=== PATIENT | male | born 1985 | race Hispanic/Latino ===

== ENCOUNTER 2019-01-25 06:46 | Day surgery (SDC) | payer OTHER ==
--- NOTE | 2019-01-24 16:45 | NUR ---
DOS, H&P CLARIFIED DOS WITH MARCIO AT DR. SHELTON'S OFFICE. PER MARCIO, DOS IS 01/25/19, H&P WILL BE DICTATED.
[2019-01-24 16:46] LABS: BASOPHILS % (AUTO) 0.4 % (0.0-5.0); EOSINOPHILS % (AUTO) 11.5 % (0.0-8.0); HEMATOCRIT 41.5 % (42-54); LYMPHOCYTES % (AUTO) 27.3 % (21.0-51.0); MEAN CORPUSCULAR HGB CONC 34.7 g/dL (32.0-36.0); MEAN CORPUSCULAR VOLUME 86.5 fL (79-99); MONOCYTES % (AUTO) 5.9 % (3.0-13.0); NEUTROPHILS % (AUTO) 54.9 % (40.0-77.0); PLATELET COUNT (AUTO) 218 K/uL (130-400); RED CELL DISTRIBUTION WIDTH 13.1 % (11.0-15.5); WHITE BLOOD COUNT (AUTO) 10.5 K/uL (4.8-10.8)
[2019-01-24 16:48] VITALS: BP 142/81
--- NOTE | 2019-01-24 17:30 | NUR ---
HX ABNORMAL HEART BEAT PT STATED HE HAD HX OF ABNORMAL HEARTBEAT DIAGNOSED BY HIS PCP 5 YRS AGO AND WAS PUT ON MONITOR OVERNIGHT, STATES HEARTBEAT FAST AT NIGHT AND SLOW AT DAY TIME. HE HAS NEVER BEEN SEEN BY DISK SHARPENER, NOT PUT ON ANY MEDS, NO OTHER WORK UP DONE DUE TO INSURANCE. PT HAS NOT HAD ANY FOLLOW UP AFTER THAT. PT IS ASYMPTOMATIC. DR. WALTER NOTIFIED.
[~2019-01-25] VITALS: Ht 165.1 cm; Wt 110.4 kg
[2019-01-25] VITALS (20 sets, daily range): BP systolic 107–130; BP diastolic 54–85
--- NOTE | 2019-01-25 08:00 | NUR ---
POTENTIAL FOR INFECTION: SHAVED ENTIRE ABDOMEN PER [employer]ER FORRESTER.
[2019-01-25] MEDS ORDERED: BUPIVACAINE/PF 0.25% 30ML VIAL IJ ONE (08:19)
[2019-01-25] MEDS ORDERED: LACTATED RINGERS 1000ML 1,000 ML IV ONE (08:22)
[2019-01-25] MEDS ORDERED: NAPR-1023 PO (08:50)
[2019-01-25] MEDS ORDERED: DEXAMETHASONE SOD PHOSPHATE 10MG/ML 1ML VIAL ONE (09:04)
[2019-01-25] MEDS ORDERED: PROPOFOL 10 MG/ML 20ML VIAL IV ONE (09:04)
[2019-01-25] MEDS ORDERED: MIDAZOLAM HCL 1 MG/ML 2ML VIAL ONE (09:04)
[2019-01-25] MEDS ORDERED: SUCCINYLCHOLINE 200MG/10ML SYR ONE (09:04)
[2019-01-25] MEDS ORDERED: LIDOCAINE PF 2% 5ML ABBOJECT ONE (09:04)
[2019-01-25] MEDS ORDERED: GLYCOPYRROLATE 1 MG/5 ML SYRINGE ONE (09:04)
[2019-01-25] MEDS ORDERED: NEOSTIGMINE 5MG/5ML SYR IV ONE (09:05)
[2019-01-25] MEDS ORDERED: ONDANSETRON HCL 4 MG/2 ML VIAL ONE (09:05)
[2019-01-25] MEDS ORDERED: FENTANYL CITRATE PF 50 MCG/1 ML 2ML VIAL ONE ×2 (09:05→09:45)
[2019-01-25] MEDS ORDERED: ROCURONIUM 10MG/1ML SYR 10 MG/ML ML ONE (09:06)
[2019-01-25] MEDS ORDERED: MEPERIDINE-PF 25 MG/ML SYG ONE (11:15)
--- NOTE | 2019-01-25 12:34 | NUR ---
PT. LEFT VIA WHEELCHAIR IN PVT CAR WITH SPOUSE NO COMPLICATIONS UPON D/C. D/C INSTRUCTION GIVEN TO WITH RX SCRIPT.
[2019-01-27] MEDS ORDERED: LACTATED RINGERS 1000ML 1,000 ML IV SCH (06:00)
== END 2019-01-25 12:47 | disposition home or self-care (01) ==
LOC: DAH 06:46
PROVIDERS: ATTEND Surgery
DX: K42.9 Umbilical hernia without obstruction or gangrene (principal); J45.909 Unspecified asthma, uncomplicated; E66.01 Morbid (severe) obesity due to excess calories
CPT/HCPCS: 36415; 49585; 85025; A4215; A4221; A4222; A4223; A4450; A4452; A4554; A4600; A4606; A4663; A6260; J0330; J1100; J2001; J2175; J2250; J2405; J2704; J2710; J3010 ×2; J3490 ×2; J7120 ×2